=== PATIENT | female | born 1995 | race Caucasian/White ===

== ENCOUNTER 2018-03-12 16:11 | Emergency (ER) | payer BC ==
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
[2018-03-12 19:30] VITALS: BP 117/72
== END 2018-03-12 19:30 | disposition home or self-care (01) ==
DX: S05.11XA Contusion of eyeball and orbital tissues, right eye, initial encounter (principal); R93.0 Abnormal findings on diagnostic imaging of skull and head, not elsewhere classified; V00.328A Other snow-ski accident, initial encounter; Y93.23 Activity, snow (alpine) (downhill) skiing, snowboarding, sledding, tobogganing and snow tubing; Y92.838 Other recreation area as the place of occurrence of the external cause; Z88.2 Allergy status to sulfonamides